=== PATIENT | female | born 1950 | race Caucasian/White ===

== ENCOUNTER 2017-08-05 16:32 | Emergency (ER) | payer MEDICARE ==
[~2017-08-05] VITALS: Ht 172.7 cm; Wt 47.5 kg
[2017-08-05 16:40] VITALS: BP 141/94; PULSE 79; RESP 16; TEMP 97.8; O2SAT 97
--- NOTE | 2017-08-05 16:55 | PD ---
HPI Chief Complaint: Laceration/Skin Injury Time Seen by Provider: 16:45 Travel History International Travel<30 days: No Contact w/Intl Traveler<30days: No Traveled to known affect area: No History of Present Illness HPI 67-year-old female here for evaluation of laceration to the right thumb. Patient reports she was using a vegetable slicer in the kitchen prior to arrival when she cut the thumb. She has an avulsion laceration to the medial aspect. She tends and wrapped the wound but was unable to get the wound stopped bleeding prompting her visit here. She reports normal sensation and full range of motion of finger. Her port mild pain at the site. No aggravating or alleviating factors. Tetanus immunization is up-to-date. [facility] Past Medical History High Cholesterol: Yes Hypertension: Yes Tetanus Vaccination: > 5 Years Influenza Vaccination: No ?: Not Past Surgical History Abdominal Surgery: Yes (COLECTOMY, ADHESIONLYSIS) Social History Alcohol Use: No Tobacco Use: Yes (1 PPD) Substance Use: No Allergies-Medications (Allergen,Severity, Reaction): Coded Allergies: Sulfa (Sulfonamide Antibiotics) (Verified Allergy, Severe, PALPITATIONS, 08/05/17) ciprofloxacin (Verified Allergy, Severe, RASH, 08/05/17) Review of Systems Except as stated in HPI: all other systems reviewed are Neg Physical Exam Narrative GENERAL: Well-nourished, well-developed patient. SKIN: Focused skin assessment warm/dry. 1 Centimeter avulsion laceration to the right thumb medial aspect. No underlying tendon injury. HEAD: Normocephalic. EYES: No scleral icterus. No injection or drainage. NECK: Supple, trachea midline. No JVD or lymphadenopathy. MUSCULOSKELETAL: No cyanosis, or edema. Attention to right hand: full range of motion and normal sensation within the thumb. She is able to flex and extend the finger without difficulty. Brisk cap refill. BACK: Nontender without obvious deformity. No CVA tenderness. Data Data Last Documented VS Vital Signs Date Time Temp Pulse Resp B/P (MAP) Pulse Ox O2 Delivery O2 Flow Rate FiO2 08/05/17 16:40 97.8 79 16 141/94 (110) 97 Orders Orders Gelatin 12 Mm/7 Mm Top (Gelfoam 12 Mm/7 (08/05/17 17:00) [facility] Medical Decision Making Medical Screen Exam Complete: Yes Emergency Medical Condition: Yes Differential Diagnosis Laceration, avulsion injury, tendon injury Narrative Course 67-year-old female here with avulsion laceration to the right thumb. The digit is neurovascular intact. There is persistent mild bleeding. Surgicel foam placed on the wound. Hemostasis achieved. Diagnosis Primary Impression: Laceration of right thumb Qualified Codes: S61.011A - Laceration without foreign body of right thumb without damage to nail, initial encounter Referrals: Primary Care Physician Additional Instructions: Do not submerge the wound in water. Keep the dressing in place for 24 hours. YOU may begin changing the dressing tomorrow. Follow up with your primary doctor. Disposition: 01 DISCHARGE HOME Condition: Stable Kate Weaver Aug 05, 2017 16:55
[2017-08-05] MEDS ORDERED: GELATIN 12 MM/7 MM FOAM TOPICAL ONE (17:00)
[2017-08-05] MEDS ORDERED: TETANUS/DIPHTHERIA TOXOID ADULT 0.5 ML VIAL IM ONE (17:15)
== END 2017-08-05 17:55 | disposition home or self-care (01) ==
LOC: PHEFT 16:32
DX: S61.011A Laceration without foreign body of right thumb without damage to nail, initial encounter (principal); W45.8XXA Other foreign body or object entering through skin, initial encounter; Z23 Encounter for immunization
CPT/HCPCS: 12001; 90471; 90714